=== PATIENT | male | born 1980 | race African-American/Black ===

== ENCOUNTER → 2017-04-15 14:25 | Emergency (ER) | payer SELFPAY | END | disposition home or self-care (01) | LOC: ER 14:25 | DX: M67.431 Ganglion, right wrist (principal) | CPT/HCPCS: 96372; 99283 ==

== ENCOUNTER 2017-05-03 17:05 | Emergency (ER) | payer SELFPAY | END 2017-05-03 17:27 | disposition home or self-care (01) | LOC: ER 17:05 | DX: M79.601 Pain in right arm (principal); M79.641 Pain in right hand; F17.200 Nicotine dependence, unspecified, uncomplicated | CPT/HCPCS: 96372; 99283; J1885 ==

== ENCOUNTER 2017-05-04 08:55 | Emergency (ER) | payer SELFPAY ==
[2017-05-04 09:54] LABS: BASOPHILS 0.2 %; BASOPHILS ABSOLUTE 0.01 10/3/uL (0.0-0.16); EOSINOPHILS 0.3 %; EOSINOPHILS ABSOLUTE 0.02 10/3/uL (0.0-0.53); ER CBC TAT 0 Hrs 07 Mins; HEMOGLOBIN 15.7 g/dL (13.6-17.8); LYMPHOCYTES 36.9 %; LYMPHOCYTES ABSOLUTE 2.18 10/3/uL (0.67-4.30); MEAN CORPUS HGB CONC 34.9 g/dL (32.0-36.0); MEAN CORPUSCULAR HEMOGLOB 30.5 pg (26.0-34.0); MEAN CORPUSCULAR VOLUME 87.5 fL (80-100); MONOCYTES 6.4 %; MONOCYTES ABSOLUTE 0.38 10/3/uL (0.21-1.20); NEUTROPHILS 56.2 %; NEUTROPHILS ABSOLUTE 3.31 10/3/uL (2.02-8.40); PLATELET COUNT 267 10/3/uL (150-400); RBC DISTRIBUTION WIDTH 13.6 % (12.0-16.0); RED CELL COUNT 5.14 10/6/uL (4.7-6.1); WHITE BLOOD CELLS 5.9 10/3/uL (4.5-10.5)
[2017-05-04 09:55] LABS: MANUAL DIFF NO %
[2017-05-04 10:08] LABS: A/G RATIO 1.2 (0.7-1.9); ALBUMIN 4.3 G/DL (3.5-5.0); ALKALINE PHOSPHATASE 56 U/L (45-117); BUN (BLOOD UREA NITROGEN) 10 MG/DL (6-23); CALCIUM, SERUM 9.2 MG/DL (8.5-10.4); CHLORIDE, SERUM 105 MMOL/L (96-112); CO2 (CARBON DIOXIDE) 28 MMOL/L (24-34); CREATININE 0.97 MG/DL (0.70-1.30); GFR AFRICAN AMERICAN 114 ML/MIN (>=60); GFR NON AFRICAN AMERICAN 99 ML/MIN (>=60); GLOBULIN 3.5 G/DL (2.5-4.1); POTASSIUM, SERUM 4.1 MMOL/L (3.5-5.3); SGOT(AST) 24 U/L (5-40); SGPT(ALT) 21 U/L (5-65); SODIUM, SERUM 140 MMOL/L (135-148); TOTAL BILIRUBIN 0.7 MG/DL (0-1.2); TOTAL PROTEIN 7.8 G/DL (6.0-8.5)
[2017-05-04 10:09] LABS: GLUCOSE, SERUM 98 MG/DL (60-99)
[2017-05-04 11:04] LABS: CPK 192 U/L (0-200)
== END 2017-05-04 15:25 | disposition home or self-care (01) ==
LOC: ER 08:55
PROVIDERS: Emergency Medicine
DX: M54.12 Radiculopathy, cervical region (principal); M79.601 Pain in right arm; Z86.73 Personal history of transient ischemic attack (TIA), and cerebral infarction without residual deficits
CPT/HCPCS: 72125; 80053; 82550; 85025; 96374; 96375; 99284; J1170; J2405